=== PATIENT | male | born 1980 | race American Indian/Alaskan Native ===

== ENCOUNTER 2016-06-25 00:41 | Emergency (ER) | payer MEDICARE ==
[2016-06-25 00:56] VITALS: O2SAT 100
--- NOTE | 2016-06-25 01:24 | C.PDOC ---
History Of Present Illness Patient is a 36 year old male who presents to the ER with a complaint of shortness of breath. Patient states he was discharged earlier today from [facility] for the same complaint. Patient reports he is on dialysis and states his most recent treatment was last Saturday. Denies any chest pain, nausea, vomiting, or fever. He is due for dialysis this morning. Chief Complaint (Nursing): Shortness Of Breath History Per: Patient History/Exam Limitations: no limitations Onset/Duration Of Symptoms: Hrs Current Symptoms Are (Timing): Still Present Associated Symptoms: denies: Fever, Chills, Chest Pain Reports Recently: Seen In ED ([facility]) Past Medical History Reviewed: Historical Data, Nursing Documentation, Vital Signs Vital Signs: Last Vital Signs Temp 98 F 06/25/16 03:04 Pulse 84 06/25/16 03:04 Resp 18 06/25/16 03:04 BP 149/95 H 06/25/16 03:04 Pulse Ox 100 06/25/16 04:18 - Medical History PMH: CHF, HTN, Chronic Kidney Disease Family History: States: No Known Family Hx - Social History Hx Alcohol Use: Yes Hx Substance Use: No - Immunization History Hx Tetanus Toxoid Vaccination: Yes Hx Influenza Vaccination: Yes Hx Pneumococcal Vaccination: Yes Review Of Systems Except As Marked, All Systems Reviewed And Found Negative. Constitutional: Negative for: Fever, Chills Cardiovascular: Negative for: Chest Pain, Palpitations Respiratory: Positive for: Shortness of Breath Gastrointestinal: Negative for: Nausea, Vomiting Physical Exam - Physical Exam Appears: Well, Non-toxic, No Acute Distress Skin: Normal Color, Warm, Dry Head: Atraumatic, Normacephalic Eye(s): bilateral: Normal Inspection Oral Mucosa: Moist Chest: Symmetrical Cardiovascular: Rhythm Regular Respiratory: Normal Breath Sounds, No Accessory Muscle Use, No Rales, No Rhonchi , No Wheezing Gastrointestinal/Abdominal: Soft, No Tenderness, No Distention, No Guarding, No Rebound Neurological/Psych: Oriented x3, Normal Speech, Normal Cognition ED Course And Treatment - Laboratory Results Result Diagrams: 06/25/16 01:57 06/25/16 01:57 ECG: Interpreted By Me, Viewed By Me ECG Rhythm: Sinus Rhythm ECG Interpretation: Normal, No Acute Changes Interpretation Of ECG: NSR, possible Left atrial enlargement, no acute changed , boederline tracings Rate From EC O2 Sat by Pulse Oximetry: 100 (room air) Pulse Ox Interpretation: Normal - Radiology CXR: Interpreted by Me, Viewed By Me CXR Interpretation: Yes: No Acute Disease, Other (no pulm. congestion). No: Infiltrates Progress Note: EKG, blood work, and chest x-ray ordered. Reevaluation Time: 04:00 Reassessment Condition: Unchanged (no sign of dyspnea, stable , advised about to have renal dialysis as schedule this morning.) Disposition Counseled Patient/Family Regarding: Diagnosis - Disposition Referrals: [facility] [Outside] Disposition: HOME/ ROUTINE Disposition Time: 03:39 Condition: STABLE Additional Instructions: to go for dialysis this morning as schedule. Instructions: End Stage Kidney Disease (ED) - POA Present On Arrival: None - Clinical Impression Clinical Impression: ESRD (end stage renal disease) on dialysis - Scribe Statement The provider has reviewed the documentation as recorded by the Scribe Rj Parker All medical record entries made by the Scribe were at my direction and personally dictated by me. I have reviewed the chart and agree that the record accurately reflects my personal performance of the history, physical exam, medical decision making, and the department course for this patient. I have also personally directed, reviewed, and agree with the discharge instructions and disposition.
[2016-06-25 02:04] LABS: BASO % 1.1 % (0.0-2.0); EOS # 0.3 K/uL (0.0-0.7); EOS % 8.2 % (0.0-4.0); HEMATOCRIT 33.4 % (35.0-51.0); LYMPH # 1.1 K/uL (1.0-4.3); LYMPH % 27.3 % (20.0-40.0); MEAN CELL VOLUME 97.5 fL (80.0-94.0); MEAN CORPUSCULAR HEMOGLOBIN 31.8 pg (27.0-31.0); MEAN CORPUSCULAR HGB CONC 32.6 g/dL (33.0-37.0); MEAN PLATELET VOLUME 8.3 fL (7.2-11.7); MONO # 0.6 K/uL (0.0-0.8); MONO % 13.5 % (0.0-10.0); NRBC % 0.6 % (0.0-2.0); RED CELL DISTRIBUTION WIDTH 20.1 % (11.5-14.5); WHITE BLOOD COUNT 4.2 K/uL (4.8-10.8)
[2016-06-25 02:26] LABS: POTASSIUM 4.5 mmol/L (3.6-5.2)
[2016-06-25 02:28] LABS: BILIRUBIN,TOTAL 1.2 mg/dL (0.2-1.3)
[2016-06-25 02:29] LABS: ALB/GLOB RATIO 0.9 (1.0-2.1); TOTAL PROTEIN 7.5 g/dL (6.3-8.3)
[2016-06-25 02:30] LABS: CALCIUM 9.5 mg/dl (8.6-10.4)
[2016-06-25 03:15] VITALS: TEMP 98
[2016-06-25 06:29] VITALS: BP 173/109; PULSE 82; RESP 15
--- NOTE | 2016-06-25 09:22 | RAD ---
HISTORY: SOB COMPARISON: No prior. TECHNIQUE: Chest PA and lateral FINDINGS: LUNGS: The interstitial markings are slightly increased and coarsened ; rule out sequela of reactive/inflammatory airway disease and or viral illness. There appears be some minor linear scarring in the left lingular region. Mild bibasilar atelectasis also felt be present PLEURA: No significant pleural effusion identified. No pneumothorax apparent. CARDIOVASCULAR: N mild cardiomegaly. . OSSEOUS STRUCTURES: No significant abnormalities. VISUALIZED UPPER ABDOMEN: Normal. OTHER FINDINGS: Multiple metallic clips seen in the right axillary region and medial aspect right upper extremity. Clinic correlation with surgical history IMPRESSION: Mild cardiomegaly. The interstitial markings are slightly increased and coarsened ; rule out sequela of reactive/inflammatory airway disease and or viral illness. Mild bibasilar atelectasis minor scarring in the lingular region.
--- NOTE | 2016-06-26 20:15 | CARD ---
APPROVED REPORT EKG Measurement Heart [id number] <Conclusion> Normal sinus rhythm Normal Electrocardiogram
== END 2016-06-25 06:52 | disposition home or self-care (01) ==
LOC: C.ER 00:41
DX: N18.6 End stage renal disease (principal); Z99.2 Dependence on renal dialysis